=== PATIENT | male | born 1980 | race African-American/Black ===

== ENCOUNTER 2020-05-12 00:48 | Inpatient (IN) | payer MEDICAID ==
[~2020-05-12] VITALS: Ht 180.3 cm; Wt 86.5 kg
[2020-05-12] MEDS ORDERED: LORazepam 2 MG TABLET PO PRN (02:30)
[2020-05-12] MEDS ORDERED: HALOPERIDOL 5 MG TABLET PO PRN (02:30)
[2020-05-12] MEDS ORDERED: ZOLPIDEM TARTRATE 10 MG TABLET PO PRN (02:30)
[2020-05-12 03:00] VITALS: BP 151/88
[2020-05-12] MEDS ORDERED: MAGNESIUM HYDROXIDE SUSPENSION 30 ML UDCUP PO PRN (07:15)
[2020-05-12] MEDS ORDERED: OMEPRAZOLE 20 MG CAPSULE PO PRN (07:15)
[2020-05-12] MEDS ORDERED: BACITRACIN 28.4 GM OINTMENT TP PRN (07:15)
[2020-05-12] MEDS ORDERED: DOCUSATE SODIUM 100 MG CAPSULE PO PRN (07:15)
[2020-05-12] MEDS ORDERED: LOPERAMIDE HCL 2 MG CAPSULE PO PRN (07:15)
[2020-05-12] MEDS ORDERED: MAG HYDROX/AL HYDROX/SIMETH ES 30 ML SUSPENSION UDCUP PO PRN (07:15)
[2020-05-12] MEDS ORDERED: ACETAMINOPHEN 325 MG TABLET PO PRN (07:15)
[2020-05-12] MEDS ORDERED: ONDANSETRON HCL 4 MG TABLET PO PRN (07:15)
[2020-05-12] MEDS ORDERED: ALBUTEROL SULFATE HFA 90 MCG/PUFF 8 GM INHALER IH PRN (07:15)
[2020-05-12] MEDS ORDERED: PETROLATUM,WHITE 28 GM JELLY TP PRN (07:15)
[2020-05-12] MEDS ORDERED: BENZOCAINE/MENTHOL LOZENGE MM PRN (07:15)
[2020-05-12] MEDS ORDERED: CloNIDine HCL 0.1 MG TABLET PO PRN (07:15)
[2020-05-12 08:16] VITALS: BP 118/81
[2020-05-12] MEDS: NICOTINE 21 MG/24 HOUR PATCH TD SCH (10:02)
[2020-05-12 16:11] VITALS: BP 122/66
[2020-05-13 00:30] VITALS: BP 115/83
[2020-05-13 08:32] LABS: BASOPHILS % (AUTO) 2.1 % (0.0-2.0); EOSINOPHILS % (AUTO) 10.2 % (1.0-6.0); HEMATOCRIT 40.4 % (41-53); HEMOGLOBIN 13.4 g/dL (13.5-17.5); LYMPHOCYTES # (AUTO) 1.7 K/uL (1.0-4.8); LYMPHOCYTES % (AUTO) 41.3 % (22.0-44.0); MEAN CORPUSCULAR HEMOGLOBIN 27.4 pg (26.0-34.0); MEAN CORPUSCULAR HGB CONC 33.1 G/dL (31.0-37.0); MEAN CORPUSCULAR VOLUME 83 fL (80-100); MONOCYTES # (AUTO) 0.5 K/uL (0.1-1.0); MONOCYTES % (AUTO) 13.7 % (2.0-9.0); NEUTROPHILS # (AUTO) 1.3 K/uL (1.8-7.7); NEUTROPHILS % (AUTO) 32.7 % (40.0-70.0); PLATELET COUNT (AUTO) 245 K/uL (150-450); RED BLOOD CELL COUNT(AUTO) 4.88 MIL/uL (4.50-5.90); RED CELL DISTRIBUTION WIDTH 14.6 % (11.5-14.5)
[2020-05-13] MEDS: NICOTINE 21 MG/24 HOUR PATCH TD SCH (09:00)
[2020-05-13 09:11] LABS: ANION GAP 8 mmol/L (8-16); CALCIUM, TOTAL 8.8 mg/dL (8.8-10.5); CARBON DIOXIDE 26 mmol/L (22-29); CHLORIDE 106 mmol/L (98-107); CHOL/HDL RATIO 3.8 (4.2-7.3); CHOLESTEROL 150 mg/dL (131-200); CREATININE 1.06 mg/dL (0.60-1.30); GLOMERULAR FILTR. RATE CALC > 60 mL/min (>60); GLUCOSE,RANDOM 88 mg/dL (70-110); HDL CHOLESTEROL 39 mg/dL (40-60); LDL CHOL (CALC.) 96 mg/dL (0-130); POTASSIUM 4.3 mmol/L (3.5-5.1); SODIUM SERUM 140 mmol/L (136-145); THYROID STIMULATING HORMONE 0.24 uIU/mL (0.36-3.74); TRIGLYCERIDES 76 mg/dL (15-150); UREA NITROGEN, BLOOD 15 mg/dL (7-18)
[2020-05-13 09:33] VITALS: BP 132/79
[2020-05-13 17:08] VITALS: BP 102/85
[2020-05-13] MEDS: OLANZapine 7.5 MG TABLET PO SCH (20:34)
[2020-05-14 00:41] VITALS: BP 105/68
[2020-05-14] MEDS: NICOTINE 21 MG/24 HOUR PATCH TD SCH (09:00)
[2020-05-14 09:32] VITALS: BP 114/75
[2020-05-14 16:00] VITALS: BP 110/82
[2020-05-14] MEDS: OLANZapine 7.5 MG TABLET PO SCH (20:22)
[2020-05-15 01:08] VITALS: BP 132/63
[2020-05-15] MEDS ORDERED: OLAN7.5T2 PO (07:34)
[2020-05-15 08:37] VITALS: BP 121/76
[2020-05-15] MEDS: NICOTINE 21 MG/24 HOUR PATCH TD SCH (09:00)
== END 2020-05-15 11:00 | disposition home or self-care (01) | DRG 885 ==
LOC: B2S 01:33
PROVIDERS: ADMIT Psychiatry & Neurology Psychiatry; ATTEND Psychiatry & Neurology Psychiatry
DX: F31.9 Bipolar disorder, unspecified (principal); F41.9 Anxiety disorder, unspecified; G47.00 Insomnia, unspecified; I10 Essential (primary) hypertension; K59.00 Constipation, unspecified; Z56.0 Unemployment, unspecified; Z72.89 Other problems related to lifestyle
CPT/HCPCS: 84443; 87081

== ENCOUNTER 2022-02-09 09:12 | Emergency (ER) | payer MEDICAID, OTHER ==
[~2022-02-09] VITALS: Ht 180.3 cm; Wt 100.0 kg
[~2022-02-09 09:12] MED LIST: OLAN7.5T22 PO
[2022-02-09 10:51] VITALS: BP 129/87
[2022-02-09] MEDS ORDERED: IBUPROFEN 600 MG TABLET PO ONE (11:15)
== END 2022-02-09 11:21 | disposition home or self-care (01) ==
LOC: EMS 09:18
DX: M79.661 Pain in right lower leg (principal); I10 Essential (primary) hypertension; F20.9 Schizophrenia, unspecified; F17.210 Nicotine dependence, cigarettes, uncomplicated; Z88.6 Allergy status to analgesic agent; Z79.899 Other long term (current) drug therapy
CPT/HCPCS: 93971; 99284; Z7502; Z7610

== ENCOUNTER 2022-07-02 18:34 | Emergency (ER) | payer OTHER ==
[~2022-07-02] VITALS: Ht 177.8 cm; Wt 100.0 kg
[2022-07-02 18:47] VITALS: BP 133/78
[2022-07-02] MEDS ORDERED: ESCI10 PO (20:14)
[2022-07-02] MEDS ORDERED: PALI819S IM (20:14)
[2022-07-02] MEDS ORDERED: OLAN10 PO (20:14)
[2022-07-02] MEDS ORDERED: CLOT15CR29 TP (21:28)
== END 2022-07-02 23:46 | disposition home or self-care (01) ==
LOC: EMS 18:34
DX: L30.4 Erythema intertrigo (principal); I10 Essential (primary) hypertension; F17.210 Nicotine dependence, cigarettes, uncomplicated; Z88.6 Allergy status to analgesic agent; Z79.899 Other long term (current) drug therapy
CPT/HCPCS: 99282; Z7502

== ENCOUNTER 2023-02-09 19:36 | Emergency (ER) | payer OTHER ==
[~2023-02-09] VITALS: Ht 182.9 cm; Wt 100.0 kg
[~2023-02-09 19:36] MED LIST changes: +CLOT15CR29 TP; +ESCI10 PO; +OLAN10 PO; -OLAN7.5T22 PO; +PALI819S IM
[2023-02-09 19:37] VITALS: BP 156/80
[2023-02-09 20:54] LABS: BASOPHILS % (AUTO) 0.5 % (0.0-2.0); EOSINOPHILS % (AUTO) 0.5 % (1.0-6.0); HEMATOCRIT 43.9 % (41-53); HEMOGLOBIN 14.7 g/dL (13.5-17.5); LYMPHOCYTES # (AUTO) 2.3 K/uL (1.0-4.8); LYMPHOCYTES % (AUTO) 23.1 % (22.0-44.0); MEAN CORPUSCULAR HEMOGLOBIN 30.9 pg (26.0-34.0); MEAN CORPUSCULAR HGB CONC 33.5 G/dL (31.0-37.0); MEAN CORPUSCULAR VOLUME 92 fL (80-100); MONOCYTES # (AUTO) 0.6 K/uL (0.1-1.0); MONOCYTES % (AUTO) 6.2 % (2.0-9.0); NEUTROPHILS # (AUTO) 6.9 K/uL (1.8-7.7); NEUTROPHILS % (AUTO) 69.7 % (40.0-70.0); PLATELET COUNT (AUTO) 181 K/uL (150-450); RED BLOOD CELL COUNT(AUTO) 4.77 MIL/uL (4.50-5.90); RED CELL DISTRIBUTION WIDTH 13.5 % (11.5-14.5)
[2023-02-09] MEDS ORDERED: HYDR50CA7 PO (20:55)
[2023-02-09] MEDS ORDERED: OLAN10TA74 PO (20:55)
[2023-02-09] MEDS ORDERED: OLANZapine 5 MG TABLET PO ONE (21:00)
[2023-02-09] MEDS ORDERED: LORazepam 1 MG TABLET PO ONE (21:00)
[2023-02-09 21:02] LABS: ANION GAP 8 mmol/L (8-16); CALCIUM, TOTAL 8.6 mg/dL (8.8-10.5); CARBON DIOXIDE 30 mmol/L (22-29); CHLORIDE 107 mmol/L (98-107); GLOMERULAR FILTR. RATE CALC > 60 mL/min (>60); GLUCOSE,RANDOM 102 mg/dL (70-110); POTASSIUM 4.5 mmol/L (3.5-5.1); SODIUM SERUM 145 mmol/L (136-145); UREA NITROGEN, BLOOD 10 mg/dL (7-18)
[2023-02-09 21:08] LABS: ALANINE AMINOTRANSFERASE 65 U/L (12-78); ALBUMIN 4.1 g/dL (3.4-5.0); ALKALINE PHOSPHATASE 122 U/L (46-116); ASPARTATE AMINOTRANSFERASE 37 U/L (15-37); TOTAL PROTEIN, SERUM 7.3 g/dL (6.4-8.2)
== END 2023-02-09 21:43 | disposition home or self-care (01) ==
LOC: EMS 19:36
DX: F41.9 Anxiety disorder, unspecified (principal); F43.9 Reaction to severe stress, unspecified; F31.9 Bipolar disorder, unspecified; F20.9 Schizophrenia, unspecified; I10 Essential (primary) hypertension; F17.210 Nicotine dependence, cigarettes, uncomplicated; Z88.5 Allergy status to narcotic agent
CPT/HCPCS: 99284; 80053; 85025; 36415; G0480

== ENCOUNTER 2023-02-19 02:45 | Emergency (ER) | payer OTHER ==
[~2023-02-19] VITALS: Ht 180.3 cm; Wt 109.1 kg
[~2023-02-19 02:45] MED LIST changes: +HYDR50CA7 PO; +OLAN10TA74 PO
[2023-02-19] MEDS ORDERED: OLANZapine 5 MG TABLET PO ONE (03:15)
[2023-02-19 03:18] LABS: BASOPHILS % (AUTO) 2.4 % (0.0-2.0); EOSINOPHILS % (AUTO) 5.3 % (1.0-6.0); HEMATOCRIT 37.5 % (41-53); HEMOGLOBIN 12.6 g/dL (13.5-17.5); LYMPHOCYTES # (AUTO) 1.4 K/uL (1.0-4.8); LYMPHOCYTES % (AUTO) 27.2 % (22.0-44.0); MEAN CORPUSCULAR HEMOGLOBIN 26.9 pg (26.0-34.0); MEAN CORPUSCULAR HGB CONC 33.5 G/dL (31.0-37.0); MEAN CORPUSCULAR VOLUME 80 fL (80-100); MONOCYTES # (AUTO) 0.5 K/uL (0.1-1.0); MONOCYTES % (AUTO) 9.4 % (2.0-9.0); NEUTROPHILS # (AUTO) 2.8 K/uL (1.8-7.7); NEUTROPHILS % (AUTO) 55.7 % (40.0-70.0); PLATELET COUNT (AUTO) 340 K/uL (150-450); RED BLOOD CELL COUNT(AUTO) 4.66 MIL/uL (4.50-5.90); RED CELL DISTRIBUTION WIDTH 14.3 % (11.5-14.5)
[2023-02-19 03:29] LABS: ANION GAP 7 mmol/L (8-16); CALCIUM, TOTAL 9.2 mg/dL (8.8-10.5); CARBON DIOXIDE 28 mmol/L (22-29); CHLORIDE 101 mmol/L (98-107); CREATININE 1.16 mg/dL (0.60-1.30); GLOMERULAR FILTR. RATE CALC > 60 mL/min (>60); GLUCOSE,RANDOM 106 mg/dL (70-110); SODIUM SERUM 136 mmol/L (136-145); UREA NITROGEN, BLOOD 11 mg/dL (7-18)
[2023-02-19 03:36] LABS: ALANINE AMINOTRANSFERASE 42 U/L (12-78); ALBUMIN 3.8 g/dL (3.4-5.0); ALKALINE PHOSPHATASE 128 U/L (46-116); ASPARTATE AMINOTRANSFERASE 37 U/L (15-37); BILIRUBIN,TOTAL 0.2 mg/dL (0.1-1.0)
[2023-02-19 09:25] VITALS: BP 140/81
== END 2023-02-19 09:28 | disposition home or self-care (01) ==
LOC: EMS 02:47
DX: F41.9 Anxiety disorder, unspecified (principal); F31.9 Bipolar disorder, unspecified; I10 Essential (primary) hypertension; F20.9 Schizophrenia, unspecified; F17.210 Nicotine dependence, cigarettes, uncomplicated; F15.90 Other stimulant use, unspecified, uncomplicated; Z88.5 Allergy status to narcotic agent
CPT/HCPCS: 99284; 80053; 85025; G0480